=== PATIENT | male | born 1975 | race African-American/Black ===

== ENCOUNTER 2017-05-26 16:22 | Emergency (ER) | payer OTHER ==
[~2017-05-26] VITALS: Ht 182.9 cm; Wt 162.4 kg
[~2017-05-26 16:22] MED LIST: AMLODIPINE BESY10 MG PO; BAYER CHEWABLE81 MG PO; COREG CR10 MG PO; FLEXERIL PO; LISINOPRIL10 MG PO; MEDROLDOSEPACK PO; PERCOCET 5-3251 EACH PO; PREDNISONE 10 M10 MG PO
[2017-05-26] MEDS ORDERED: AMLODIPINE BESY10 MG PO (16:49)
[2017-05-26] MEDS ORDERED: HYDROCODONE-AP1 EAC6 PO (17:03)
[2017-05-26 17:14] VITALS: BP 182/87
== END 2017-05-26 17:15 | disposition home or self-care (01) ==
LOC: M.ERS 16:22
DX: M10.9 Gout, unspecified (principal); I10 Essential (primary) hypertension

== ENCOUNTER 2017-05-30 04:26 | Emergency (ER) | payer OTHER ==
[~2017-05-30] VITALS: Ht 185.4 cm; Wt 181.8 kg
[~2017-05-30 04:26] MED LIST changes: +HYDROCODONE-AP1 EAC6 PO
[2017-05-30] MEDS ORDERED: ALLOPURINOL 30300 M1 PO (04:41)
[2017-05-30] MEDS ORDERED: ASPIR 8181 MG PO (04:42)
[2017-05-30] MEDS ORDERED: PREDNISONE 20 M20 M1 PO (05:08)
[2017-05-30] MEDS ORDERED: HYDROCODON-ACE1 EAC8 PO (05:08)
[2017-05-30 05:22] VITALS: BP 168/107
== END 2017-05-30 05:23 | disposition home or self-care (01) ==
LOC: M.ERS 04:26
DX: M25.571 Pain in right ankle and joints of right foot (principal); I10 Essential (primary) hypertension; M10.9 Gout, unspecified; E66.01 Morbid (severe) obesity due to excess calories; Z68.43 Body mass index [BMI] 50.0-59.9, adult

== ENCOUNTER 2017-10-28 10:42 | Emergency (ER) | payer OTHER ==
[~2017-10-28] VITALS: Ht 185.4 cm; Wt 187.3 kg
[~2017-10-28 10:42] MED LIST changes: +ALLOPURINOL 30300 M1 PO; +ASPIR 8181 MG PO; +HYDROCODON-ACE1 EAC8 PO; +PREDNISONE 20 M20 M1 PO
[2017-10-28] MEDS ORDERED: COLCHICINE0.6 MG PO (11:26)
[2017-10-28] MEDS ORDERED: PREDNISONE 10 M10 MG PO (11:26)
[2017-10-28 11:40] LABS: CALCIUM 7.9 mg/dL (8.5-10.1); CREATININE 1.2 mg/dL (0.6-1.3); POTASSIUM 3.3 mmol/L (3.5-5.1)
[2017-10-28 11:43] LABS: URIC ACID* 6.8 mg/dL (2.6-7.2)
[2017-10-28 11:45] LABS: ABSOLUTE EOSINOPHILS 0.3 thou/uL (0.0-0.7); ABSOLUTE MONOCYTES 0.5 thou/uL (0.0-1.2); ABSOLUTE NEUTROPHILS 3.8 thou/uL (1.6-8.1); BASOPHILS 0.5 %; EOSINOPHILS 4.6 %; HEMATOCRIT 45.4 % (42.0-52.0); HEMOGLOBIN 15.1 gm/dL (14.0-18.0); LYMPHOCYTES 30.1 %; MCH 26.8 pg (26.0-34.0); MCHC 33.2 g/dL (28.0-37.0); MCV 80.5 fL (80.0-100.0); MONOCYTES 7.4 %; MPV 8.1 fl. (7.2-11.1); NUCLEATED RBCS 0 /100WBC; PLATELET COUNT* 294 thou/uL (150-400); POLYS 57.4 %; RBC 5.64 mil/uL (4.50-6.00); RDW-CV 16.1 % (10.5-14.5); WBC 6.6 thou/uL (4.0-11.0)
[2017-10-28 12:16] VITALS: BP 138/85
== END 2017-10-28 12:25 | disposition home or self-care (01) ==
LOC: M.ERS 10:42
PROVIDERS: Nurse Practitioner Family
DX: M10.9 Gout, unspecified (principal)

== ENCOUNTER 2018-05-05 10:05 | Emergency (ER) | payer OTHER ==
[~2018-05-05] VITALS: Ht 185.4 cm; Wt 180.5 kg
[~2018-05-05 10:05] MED LIST changes: +COLCHICINE0.6 MG PO
[2018-05-05] MEDS ORDERED: PREDNISONE 10 M10 MG PO (10:43)
[2018-05-05 10:55] VITALS: BP 181/84
== END 2018-05-05 10:56 | disposition home or self-care (01) ==
LOC: M.ERS 10:05
DX: M10.071 Idiopathic gout, right ankle and foot (principal); I10 Essential (primary) hypertension; E66.01 Morbid (severe) obesity due to excess calories; Z68.43 Body mass index [BMI] 50.0-59.9, adult

== ENCOUNTER 2018-07-13 15:34 | Emergency (ER) | payer OTHER ==
[~2018-07-13] VITALS: Ht 182.9 cm; Wt 179.2 kg
[2018-07-13 16:21] LABS: ABSOLUTE BASOPHILS 0.1 thou/uL (0.0-0.2); ABSOLUTE EOSINOPHILS 0.3 thou/uL (0.0-0.7); ABSOLUTE LYMPHOCYTES 2.3 thou/uL (0.8-5.3); ABSOLUTE MONOCYTES 1.1 thou/uL (0.0-1.2); ABSOLUTE NEUTROPHILS 6.3 thou/uL (1.6-8.1); HEMATOCRIT 42.9 % (42.0-52.0); HEMOGLOBIN 14.2 gm/dL (14.0-18.0); LYMPHOCYTES 22.7 %; MCH 26.3 pg (26.0-34.0); MCHC 33.1 g/dL (28.0-37.0); MCV 79.5 fL (80.0-100.0); MONOCYTES 10.6 %; MPV 8.1 fl. (7.2-11.1); NUCLEATED RBCS 0 /100WBC; PLATELET COUNT* 287 thou/uL (150-400); POLYS 62.7 %; RDW-CV 17.3 % (10.5-14.5)
[2018-07-13 16:33] LABS: ALBUMIN 3.3 g/dL (3.4-5.0); CALCIUM 8.2 mg/dL (8.5-10.1); CREATININE 1.4 mg/dL (0.6-1.3); POTASSIUM 3.3 mmol/L (3.5-5.1); TOTAL BILIRUBIN 0.4 mg/dL (<0.1-1.0)
[2018-07-13 17:40] LABS: URINE BILIRUBIN NEGATIVE (Negative); URINE BLOOD NEGATIVE (Negative); URINE CLARITY CLEAR; URINE COLOR YELLOW; URINE GLUCOSE-RANDOM NEGATIVE (Negative); URINE KETONES NEGATIVE (Negative); URINE LEUKOCYTES-REFLEX NEGATIVE (Negative); URINE NITRITE-REFLEX NEGATIVE (Negative); URINE PROTEIN NEGATIVE (Negative); URINE SPECIFIC GRAVITY <= 1.005 (1.005-1.030); URINE UROBILINOGEN 0.2 E.U./dl (0.2-1.0)
[2018-07-13] MEDS ORDERED: CLEOCIN HCL300 MG PO (17:52)
[2018-07-13 18:01] VITALS: BP 168/95
== END 2018-07-13 18:04 | disposition home or self-care (01) ==
LOC: M.ERS 15:34
PROVIDERS: Nurse Practitioner Family
DX: L03.115 Cellulitis of right lower limb (principal); I10 Essential (primary) hypertension; M10.9 Gout, unspecified; E66.01 Morbid (severe) obesity due to excess calories; Z68.43 Body mass index [BMI] 50.0-59.9, adult

== ENCOUNTER 2018-07-26 18:59 | Emergency (ER) | payer OTHER ==
[~2018-07-26] VITALS: Ht 182.9 cm; Wt 178.7 kg
[~2018-07-26 18:59] MED LIST changes: +CLEOCIN HCL300 MG PO
[2018-07-26 19:04] VITALS: BP 163/93
[2018-07-26] MEDS ORDERED: NORFLEX100 MG PO (19:24)
[2018-07-26] MEDS ORDERED: MOBIC7.5 MG PO (19:24)
== END 2018-07-26 19:38 | disposition home or self-care (01) ==
LOC: M.ERS 18:59
DX: S76.012A Strain of muscle, fascia and tendon of left hip, initial encounter (principal); M10.9 Gout, unspecified; E66.01 Morbid (severe) obesity due to excess calories; Z68.43 Body mass index [BMI] 50.0-59.9, adult; W01.0XXA Fall on same level from slipping, tripping and stumbling without subsequent striking against object, initial encounter; Y93.89 Activity, other specified; Y92.89 Other specified places as the place of occurrence of the external cause; Y99.8 Other external cause status

== ENCOUNTER 2020-02-10 15:21 | Emergency (ER) | payer OTHER ==
[~2020-02-10] VITALS: Ht 185.4 cm; Wt 176.9 kg
[~2020-02-10 15:21] MED LIST changes: +MOBIC7.5 MG PO; +NORFLEX100 MG PO
[2020-02-10 15:35] VITALS: BP 144/102
[2020-02-10] MEDS ORDERED: LISINOPRIL20 MG PO (15:39)
[2020-02-10] MEDS ORDERED: HYDROCHLOROTHIA25 M2 PO (15:39)
[2020-02-10] MEDS ORDERED: CARVEDILOL25 MG PO ×2 (15:39→15:40)
[2020-02-10] MEDS ORDERED: LIPITOR40 MG PO (15:40)
[2020-02-10] MEDS ORDERED: FEBUXOSTAT40 MG PO (15:40)
[2020-02-10] MEDS ORDERED: CARDIZEM CD PO (15:41)
[2020-02-10] MEDS ORDERED: NORCO 5-325 TA1 EAC2 PO (15:50)
[2020-02-10] MEDS ORDERED: PREDNISONE 20 M20 M1 PO (15:50)
== END 2020-02-10 15:57 | disposition home or self-care (01) ==
LOC: M.ERS 15:21
DX: M10.071 Idiopathic gout, right ankle and foot (principal); M10.061 Idiopathic gout, right knee; I10 Essential (primary) hypertension; E66.01 Morbid (severe) obesity due to excess calories; Z68.43 Body mass index [BMI] 50.0-59.9, adult

== ENCOUNTER 2020-05-11 11:03 | Emergency (ER) | payer OTHER ==
[~2020-05-11] VITALS: Ht 185.4 cm; Wt 181.9 kg
[~2020-05-11 11:03] MED LIST changes: +CARDIZEM CD PO; +CARVEDILOL25 MG PO; +FEBUXOSTAT40 MG PO; +HYDROCHLOROTHIA25 M2 PO; +LIPITOR40 MG PO; +LISINOPRIL20 MG PO; +NORCO 5-325 TA1 EAC2 PO
[2020-05-11 12:13] LABS: CALCIUM 8.5 mg/dL (8.5-10.1); CREATININE 1.6 mg/dL (0.6-1.3); POTASSIUM 4.4 mmol/L (3.5-5.1)
[2020-05-11 12:18] LABS: URIC ACID* 6.4 mg/dL (2.6-7.2)
[2020-05-11] MEDS ORDERED: PREDNISONE50 MG PO (12:27)
[2020-05-11] MEDS ORDERED: HYDROCODON-ACE1 EAC7 PO (12:27)
[2020-05-11 12:36] VITALS: BP 141/65
== END 2020-05-11 12:37 | disposition home or self-care (01) ==
LOC: M.ERS 11:03
PROVIDERS: Emergency Medicine Emergency Medical Services
DX: M10.071 Idiopathic gout, right ankle and foot (principal); I10 Essential (primary) hypertension; E66.01 Morbid (severe) obesity due to excess calories; Z98.890 Other specified postprocedural states; Z68.43 Body mass index [BMI] 50.0-59.9, adult; Z79.899 Other long term (current) drug therapy

== ENCOUNTER 2020-12-27 13:14 | Emergency (ER) | payer OTHER ==
[~2020-12-27] VITALS: Ht 185.4 cm; Wt 183.7 kg
[~2020-12-27 13:14] MED LIST changes: +HYDROCODON-ACE1 EAC7 PO; +PREDNISONE50 MG PO
[2020-12-27 14:09] LABS: ABSOLUTE BASOPHILS 0.1 thou/uL (0.0-0.2); ABSOLUTE EOSINOPHILS 0.3 thou/uL (0.0-0.7); ABSOLUTE LYMPHOCYTES 2.1 thou/uL (0.8-5.3); ABSOLUTE MONOCYTES 0.5 thou/uL (0.0-1.2); ABSOLUTE NEUTROPHILS 3.5 thou/uL (1.6-8.1); BASOPHILS 1.2 %; EOSINOPHILS 4.3 %; HEMOGLOBIN 14.9 gm/dL (14.0-18.0); LYMPHOCYTES 31.9 %; MCH 26.8 pg (26.0-34.0); MCHC 33.1 g/dL (28.0-37.0); MCV 81.2 fL (80.0-100.0); MONOCYTES 8.3 %; MPV 7.6 fl. (7.2-11.1); NUCLEATED RBCS 0 /100WBC; PLATELET COUNT* 280 thou/uL (150-400); POLYS 54.3 %; RBC 5.55 mil/uL (4.50-6.00); RDW-CV 16.5 % (10.5-14.5); WBC 6.5 thou/uL (4.0-11.0)
[2020-12-27 14:18] LABS: CALCIUM 8.1 mg/dL (8.5-10.1); CREATININE 1.7 mg/dL (0.6-1.3); POTASSIUM 4.3 mmol/L (3.5-5.1)
[2020-12-27 14:22] LABS: ALBUMIN 3.5 g/dL (3.4-5.0); TOTAL BILIRUBIN 0.4 mg/dL (<0.1-1.0); TOTAL PROTEIN 7.4 g/dL (6.4-8.2); URIC ACID* 6.3 mg/dL (2.6-7.2)
[2020-12-27] MEDS ORDERED: PREDNISONE 20 M20 MG PO (14:32)
[2020-12-27 14:52] VITALS: BP 151/72
== END 2020-12-27 14:53 | disposition home or self-care (01) ==
LOC: M.ERS 13:14
PROVIDERS: Nurse Practitioner Psychiatric/Mental Health
DX: M10.042 Idiopathic gout, left hand (principal); M10.041 Idiopathic gout, right hand; I12.9 Hypertensive chronic kidney disease with stage 1 through stage 4 chronic kidney disease, or unspecified chronic kidney disease; N18.9 Chronic kidney disease, unspecified; E66.01 Morbid (severe) obesity due to excess calories; Z79.899 Other long term (current) drug therapy

== ENCOUNTER 2021-03-19 16:47 | Emergency (ER) | payer OTHER ==
[~2021-03-19] VITALS: Ht 185.4 cm; Wt 187.3 kg
[~2021-03-19 16:47] MED LIST changes: +LIPITOR 20 MG T20 M1 PO; -LIPITOR40 MG PO; +PREDNISONE 20 M20 MG PO
[2021-03-19 16:52] VITALS: BP 157/95
[2021-03-19] MEDS ORDERED: CARDURA2 MG PO (16:57)
[2021-03-20] MEDS ORDERED: PREDNISONE 20 M20 M1 PO (08:18)
[2021-03-20] MEDS ORDERED: HYDROCODON-ACE1 EAC7 PO (08:18)
== END 2021-03-19 17:34 | disposition left against medical advice (07) ==
LOC: M.ERS 16:47
DX: M10.071 Idiopathic gout, right ankle and foot (principal); Z53.21 Procedure and treatment not carried out due to patient leaving prior to being seen by health care provider

== ENCOUNTER 2021-03-20 07:59 | Emergency (ER) | payer OTHER ==
[~2021-03-20] VITALS: Ht 182.9 cm; Wt 154.2 kg
[~2021-03-20 07:59] MED LIST changes: +CARDURA2 MG PO
[2021-03-20] MEDS ORDERED: PREDNISONE 20 M20 M1 PO (08:18)
[2021-03-20] MEDS ORDERED: HYDROCODON-ACE1 EAC7 PO (08:18)
[2021-03-20 08:23] VITALS: BP 143/83
== END 2021-03-20 08:24 | disposition home or self-care (01) ==
LOC: M.ERS 07:59
DX: M10.071 Idiopathic gout, right ankle and foot (principal); I12.9 Hypertensive chronic kidney disease with stage 1 through stage 4 chronic kidney disease, or unspecified chronic kidney disease; N18.9 Chronic kidney disease, unspecified; E66.01 Morbid (severe) obesity due to excess calories; Z98.890 Other specified postprocedural states; Z68.42 Body mass index [BMI] 45.0-49.9, adult; Z79.899 Other long term (current) drug therapy